=== PATIENT | female | born 1935 | race Caucasian/White ===

== ENCOUNTER 2024-03-16 18:18 | Inpatient (IN) | payer OTHER, SELFPAY ==
[2024-03-16 12:46] VITALS: BP 147/81
[2024-03-16 13:29] VITALS: BMI 23.8
[2024-03-16 13:38] VITALS: BP 135/72
[2024-03-16 14:00] VITALS: BP 118/89
[2024-03-16 15:01] LABS: % Basophils 0.8 % (0-2); % Eosinophils 3.1 % (0-6); % Immature Granulocytes 0.3 % (0-0.5); % Lymphocytes 20.2 % (20.5-51.1); % Monocytes 7.8 % (1.7-9.3); % Neutrophils 67.8 % (42.2-75.2); Absolute Basophils 0.1 10^3/uL (0-0.2); Absolute Eosinophils 0.2 10^3/uL (0-0.7); Absolute Lymphocytes 1.5 10^3/uL (1.2-3.4); Absolute Monocytes 0.6 10^3/uL (0.1-0.6); Absolute Neutrophils 5.1 10^3/uL (1.4-6.5); Hematocrit 39.5 % (37.0-47.0); Mean Corp Hgb Conc. 32.9 g/dL (33.0-37.0); Mean Corpuscular Hgb 29.6 pg (27.0-31.0); Mean Platelet Volume 9.8 fL (7.4-10.4); Nucleated Red Blood Cells % 0 %; Platelet Count 261 10^3/uL (130-400); Red Blood Cell Count 4.39 10^6/uL (4.20-5.40); Red Cell Dist. Width 14.4 % (11.5-14.5); White Blood Cell Count 7.5 10^3/uL (4.8-10.8)
[2024-03-16 15:20] LABS: ALT (SGPT) 41 U/L (0-35); AST (SGOT) 45 U/L (14-36); Alkaline Phosphatase 49 U/L (38-126); Blood Urea Nitrogen 18 mg/dl (7-17); Calcium 9.3 mg/dl (8.4-10.2); Carbon Dioxide 32 mmol/L (22-30); Chloride 95 mmol/L (98-107); Estimated Creatinine Clearance 48 ml/min; Glucose 124 mg/dl (70-99); Potassium 4.1 mmol/L (3.5-5.1); Sodium 133 mmol/L (135-145); Total Bilirubin 0.5 mg/dl (0.2-1.3); Total Protein 6.8 g/dl (6.3-8.2); eGFR > 60.00
[2024-03-16 15:25] LABS: NT-proBNP 5110 pg/ml; Troponin I < 0.012 ng/ml
--- NOTE | 2024-03-16 16:32 | ED.GENMED ---
History of Present Illness
General
Chief Complaint: Weakness
Source: patient
Exam Limitations: none
Time Seen by Provider: 03/16/24 14:14
Travel History
Have you had any contact with someone who has COVID-19?: No
Do you have any symptoms of coronavirus? Fever > 100 degrees, chills, cough, shortness of breath, sore throat, loss of taste or smell, muscle aches, or headache?: No
History of Present Illness
History of Present Illness:
88-year-old female presents in referral from cardiology office. She has a history of CHF. She is on Lasix daily. In the recent past she has been becoming more weak. The weakness was related to low blood pressure. It was recommended that last
night she stopped her blood pressure medicine and her Lasix. Her legs continue to swell today and she persisted with weakness in extremities referred here. She has no gasping for breath but she does note fatigue with exertion. She denies chest
pain. She denies a fever. No abdominal pain. No other complaints at this time
Past History
Past History
ED Past Medical History: Arrthythmia (Atrial fibrillation), HTN, Hypercholesterolemia, NIDDM, VT, Valvular disease (Aortic stenosis with TAVR) and Other (Arthritis)
ED Past Surgical History: Orthopedic
Social History
Tobacco: Non-smoker
Alcohol: None
Drug: None
Phy Exam
Physical Exam
Physical Exam:
General: Well-appearing female no acute respiratory distress HEENT: Normocephalic atraumatic
Heart: Regular rate and rhythm no murmurs
Lungs: Clear no wheeze or rales abdomen: Soft
Normal bowel sounds nondistended
Extremities: Pitting edema bilateral lower extremities no cyanosis
Vascular: 2+ dorsalis pedis pulse bilateral feet
Course
Orders/Labs/Results
Orders:
Orders
03/16/24 12:52
Electrocardiogram (*1) Urgent
Reason for Study: Shortness of Breath
03/16/24 12:53
EKG- Treatment ONCE
03/16/24 14:31
CR Chest - 2 Views Urgent
Comment:
Reason For Exam: weakness
03/16/24 14:44
Comprehensive Metabolic Panel Urgent
03/16/24 14:45
Complete Blood Count/With Diff Urgent
NT-proBNP Urgent
Troponin I Urgent
03/16/24 17:14
Furosemide [Lasix] 80 mg IV NOW STA
Abnormal Lab Results
03/16/24 03/16/24
14:44 14:45
MCHC 32.9 L g/dL
(33.0-37.0)
Lymphocytes % 20.2 L %
(20.5-51.1)
Sodium 133 L mmol/L
(135-145)
Chloride 95 L mmol/L
(98-107)
Carbon Dioxide 32 H mmol/L
(22-30)
BUN 18 H mg/dl
(7-17)
Glucose 124 H mg/dl
(70-99)
AST 45 H U/L
(14-36)
ALT 41 H U/L
(0-35)
03/16/24 14:45
03/16/24 14:44
Vital Signs
Initial and Last Documented VS:
Initial Vital Signs
Temp Pulse Resp BP Pulse Ox
98.1 F 78 18 147/81 97
03/16/24 12:46 03/16/24 12:46 03/16/24 12:46 03/16/24 12:46 03/16/24 12:46
Last Documented Vital Signs
Temp Pulse Resp BP Pulse Ox
98.1 F 70 22 118/89 97
03/16/24 12:46 03/16/24 17:00 03/16/24 17:00 03/16/24 14:00 03/16/24 17:00
MDM/Problems Addressed
Differential Diagnosis Includes:
Patient with weakness and fluid retention. Recent blood pressure readings have been low. It was recommended by cardiology to stop the Lasix and blood pressure medicine as of last night. This morning she was referred here. Patient does appear
volume overloaded but not hypoxic. BNP is 5110. Chest x-ray shows no acute pulmonary abnormality. Most recent blood pressure 118/89.
I suspect patient may be have a component of intravascular volume depletion secondary to the weakness and low blood pressure however does appear to be third spacing fluid.
*Critical Care Note
Total Time (30-74mins, 75-104mins- exclusive of procedures): Not Applicable
Update Note
Update Note:
BNP 5110. Chest x-ray clear. Patient difficult situation to manage acutely as she may be volume overloaded but intravascularly volume depleted. Lasix was ordered IV discussed with cardiology and will admit to hospitalist service.
ED Attending Note
-
Portions of this chart may have been created with voice recognition software.� Occasional wrong word or��sound alike� substitutions may have occurred due to the inherent limitations of voice recognition software.
Discharge Plan
Departure
Patient Disposition: Admit
Date of Disposition: 03/16/24
Time of Disposition: 17:15
Admit to: Telemetry
Presentation/result/management discussed w/ accepting MD/DO: Hospitalist
Discharge Problem:
CHF (congestive heart failure)
Prescriptions:
No Action
alendronate 70 MG tablet
70 mg PO SA
atorvastatin 10 MG tablet
10 mg PO DAILY
furosemide 20 MG tablet
60 mg PO DAILY
carvedilol 12.5 MG tablet
25 mg PO BID
spironolactone 25 MG tablet
12.5 mg PO DAILY
tamoxifen 20 MG tablet
20 mg PO DAILY
sacubitril-valsartan [Entresto] 1 EACH tablet
1 tab PO Q12H
metformin 500 MG tablet
500 mg PO TID Qty: 0 0RF
Rx Instructions:
HOLD post op- OK to resume on 12/06 in AM
cyanocobalamin (vitamin B-12) 1,000 MCG tablet
1,000 mcg PO DAILY
ascorbic acid (vitamin C) [Vitamin C] 500 MG tablet
500 mg PO DAILY
ferrous sulfate [FeroSul] 325 MG tablet
325 mg PO DAILY
furosemide 20 MG tablet
40 mg PO QPM
calcium carbonate-vitamin D3 [Oyster Shell Calcium-Vit D3] 500 MG tablet
1 tab PO DAILY
multivitamin with folic acid [Tab-A-Óscar] 1 TABLET tablet
1 tab PO DAILY
apixaban [Eliquis] 5 MG tablet
5 mg PO BID
Amiodarone Hcl 200 MG Tablet
200 mg PO BID Qty: 60 0RF
Rx Instructions:
Take amiodarone 200 mg twice a day for 1 month (until 05/10/22) then reduce to once daily thereafter
Amiodarone Hcl 200 MG Tablet
200 mg PO DAILY Qty: 30 11RF
Rx Instructions:
Take amiodarone 200 mg twice a day for 1 month (until 05/10/22) then reduce to once daily thereafter
tramadol 50 MG tablet
25 mg PO Q6HPRN PRN (Reason: back pain ) 4 Days Qty: 20 0RF
clopidogrel 75 MG tablet
75 mg PO DAILY 30 Days Qty: 30 0RF
apixaban [Eliquis] 5 MG tablet
5 mg PO BID 0RF
aspirin 81 MG tablet,delayed release (DR/EC)
81 mg PO DAILY Qty: 0 0RF
Patient Comments:
04/06/22-ems gave four chew aspirins before coming to [facility]
Rx Instructions:
Stop aspirin therapy April 14
Referrals:
Mg Izquierdo MD [Family Provider] -
Interventions
Interventions:
*Risk Screen - Suicide Last Done: 03/16/24 12:52
*General Assessment Last Done: 03/16/24 12:46
*Neglect/Abuse Screening Last Done: 03/16/24 12:46
ED- Fall Risk Assessment Last Done: 03/16/24 13:29
*ED COVID-19 Vaccine History Last Done: 03/16/24 13:29
ED- Cardiac Assessment Last Done: 03/16/24 13:29
ED- Neurological Assessment Last Done: 03/16/24 13:29
ED- Pulmonary Assessment Last Done: 03/16/24 13:29
Discharge Date and Time
Print Language: SLOVENIAN
--- NOTE | 2024-03-16 17:19 | HPS.HSE ---
Family Physician
-
Family Physician: Mg Izquierdo
Chief Complaint
-
Low blood pressure
History of Present Illness
88-year-old female extensive past medical cardiac history is presenting from home with hypotension. By 2 daughters at bedside one of them RN who stated patient blood pressure was in the systolic 70s to 90s at times. Patient also with blurry vision
during hypotensive. Patient did not have symptoms of lightheadedness or dizziness. Does become short of breath with exertion. Denies chest pain. States of chronic lower extremity edema which improved with diuresis. States call cardiology
recommended to stop taking her blood pressure medication including Lasix overnight into this morning. Patient was recently started on antibiotics for cold symptoms per daughter at bedside. No fevers or chills. States improvement in cough. Denies
any nausea, vomiting, abdominal pain, diarrhea, dizziness or any other focal symptoms. Currently resting comfortably in bed and receiving 40 mg of IV Lasix.
Medical History
Past Medical History
Past Medical History: Reports Other
Additional Past Medical History:
Chronic HFrEF and HFpEF
Paroxysmal atrial fibrillation
Chronic coagulopathy with Eliquis
Aortic stenosis status post TAVR
Severe mitral regurgitation
Hyperlipidemia
Iron deficiency anemia
Diabetes mellitus type 2
Breast cancer
CAD status post stent
History of bladder cancer
Past Surgical History: Reports Other
Additional Past Surgical History:
CAD status post CABG
Pacemaker
TAVR
Left shoulder surgery
Lumpectomy
Social History
Tobacco: Non-smoker
Family History
Family History: Not pertinent
Allergies / Home Medications
Allergies reflects when Allergies were last updated in [address].
Home Medications with original date entered in [address]
Allergy/Medication List:
Allergies
Allergy/AdvReac Type Severity Reaction Status Date / Time
amlodipine Allergy ankle Verified 11/01/22 22:03
swelling
Home Medications
alendronate 70 mg tablet 70 mg PO SA 01/16/18
atorvastatin 10 mg tablet 10 mg PO DAILY 01/16/18
metformin 500 mg tablet 500 mg PO TID ##0 12/05/19
ascorbic acid (vitamin C) 500 mg tablet (Vitamin C) 500 mg PO DAILY 04/06/22
calcium carbonate 500 mg-vitamin D3 5 mcg (200 unit) tablet (Oyster Shell Calcium-Vitamin D3) 1 tab PO DAILY 04/06/22
cyanocobalamin (vitamin B-12) 1,000 mcg tablet 1,000 mcg PO DAILY 04/06/22
multivitamin with folic acid 400 mcg tablet (Tab-A-Óscar) 1 tab PO DAILY 04/06/22
amiodarone 200 mg tablet 200 mg PO DAILY 03/16/24
amoxicillin 875 mg-potassium clavulanate 125 mg tablet 1 tab PO Q12H 03/16/24
apixaban 2.5 mg tablet 2.5 mg PO BID 03/16/24
carvedilol 6.25 mg tablet 6.25 mg PO BID 03/16/24
empagliflozin 10 mg tablet (Jardiance) 10 mg PO DAILY 03/16/24
furosemide 40 mg tablet 80 mg PO DAILY@202903/16/24
furosemide 40 mg tablet 80 mg PO SUTUTHSA@49903/16/24
furosemide 40 mg tablet 120 mg PO MOWEFR@05003/16/24
guaifenesin 600 mg tablet, extended release 12 hr (Mucinex) 600 mg PO Q12H PRN congestion 03/16/24
sacubitril 24 mg-valsartan 26 mg tablet (Entresto) 1 tab PO BID 03/16/24
Review of Systems
-
History Source: Patient and Family
A 12 point ROS was completed and negative except as noted: Yes
Physical Exam
Vital Signs
Vital Signs
Temp Pulse Resp BP Pulse Ox
98.1 F 70 22 118/89 97
03/16/24 12:46 03/16/24 17:00 03/16/24 17:00 03/16/24 14:00 03/16/24 17:00
Physical Exam
General: Well Developed, Well Nourished and No Apparent Distress
HEENT: NormoCephalic, Moist mucous membranes and Atraumatic
Respiratory: Clear
Cardiac: S1/S2, Regular Rhythm and Murmur; No Rub
GI: Soft, Non Tender, Non Distended and Normal Bowel Sounds; No Organomegaly
Rectal: Deferred by Provider
Musculoskeletal: No Clubbing, No Cyanosis, Edema, Left Lower Extremity and Edema, Right Lower Extremity
Skin: No Rash
Neuro: Awake, No Motor Deficits and Nonfocal/grossly intact
Psych: Calm
Laboratory Results
-
03/16/24 14:45
03/16/24 14:44
Laboratory Results
Total Bilirubin 0.5 mg/dl (0.2-1.3) 03/16/24 14:44
AST 45 U/L (14-36) H 03/16/24 14:44
ALT 41 U/L (0-35) H 03/16/24 14:44
Alkaline Phosphatase 49 U/L (38-126) 03/16/24 14:44
Troponin I < 0.012 ng/ml 03/16/24 14:45
Impression/Plan
-
#Mild acute on chronic HFpEF and HFrEF status post BiV ICD
#Severe valvular disease with MR
#Aortic stenosis status post TAVR
proBNP elevated
Status post 80 mg of IV Lasix and will monitor response
Plan to do 80 of IV Lasix daily for now
Patient on extensive heavy dose of Lasix at home and may need to be adjusted further on discharge
Cardiology has been consulted
Await med rec and may need to hold Entresto
Monitor blood pressure
Strict I's and O's. Daily weights
Echocardiogram per cards
Cardiology consultation-contacted by ER.
#Hypotension likely secondary to overmedication
Once med rec confirmed may need to adjust further cardiac/blood pressure meds
#Recent URI
On augmentin
#Paroxysmal atrial fibrillation
Chronic coagulopathy with Eliquis
Monitor on telemetry
Continue home regimen amiodarone and Eliquis and Coreg
#Diabetes mellitus type 2
Hold p.o. meds
Accu-Chek and update A1c
Hyperlipidemia
Continue statin
Breast cancer
Continue tamoxifen
DVT prophylaxis�Eliquis
Full code per patient and confirmed with 2 daughters
Discussed with 2 daughters at bedside in detail.
I spent a total of 79 minutes with the patient or on the floor. More than 50% of this time involved counseling and coordination of care.
[2024-03-16] MEDS: LASIX 80 MG IV (17:26)
[2024-03-16 17:29] VITALS: BP 143/81
[2024-03-16 19:45] VITALS: BP 130/71
--- NOTE | 2024-03-16 19:45 | PTCARENOTE ---
Pt arrived to unit from ED and ambulated with x1 standby assist from stretcher to bed. Pt AAOx3, no pain or any other complaints at this time. VS on admission stable, daughters updated on plan of care at bedside. Pt oriented to room, call silva
within reach. Evening meds reviewed and provided to pt.
[2024-03-16 19:57] VITALS: BMI 23.8
[2024-03-16 20:10] VITALS: BMI 23.5
[2024-03-16] MEDS: COREG 6.25 MG PO (20:22)
[2024-03-16] MEDS: ELIQUIS 2.5 MG PO (20:22)
[2024-03-16] MEDS: AUGMENTIN 875 MG/125 MG 1 TABLET PO (20:23)
[2024-03-16 21:52] LABS: Glucose - Point of Care 240 mg/dl (70-99)
[2024-03-16 23:34] VITALS: BP 113/70
[2024-03-17 03:46] VITALS: BP 107/63
[2024-03-17 06:58] VITALS: BMI 23.3
[2024-03-17 07:30] LABS: Glucose - Point of Care 116 mg/dl (70-99)
[2024-03-17 08:08] VITALS: BP 106/54
[2024-03-17] MEDS: NOVOLOG FLEXPEN-LOW RESISTANCE SC ×2 (08:09→17:21)
[2024-03-17] MEDS: ELIQUIS 2.5 MG PO ×2 (08:10→21:39)
[2024-03-17] MEDS: LIPITOR 10 MG PO (08:10)
[2024-03-17] MEDS: AUGMENTIN 875 MG/125 MG 1 TABLET PO ×2 (08:10→21:39)
[2024-03-17] MEDS: VITAMIN C 500 MG PO (08:10)
[2024-03-17] MEDS: VITAMIN B-12 1000 MCG PO (08:11)
[2024-03-17] MEDS: COREG 6.25 MG PO ×2 (08:11→21:46)
[2024-03-17] MEDS: JARDIANCE 10 MG PO (08:11)
[2024-03-17] MEDS: OSCAL 500 + D 500 MG PO (08:11)
[2024-03-17] MEDS: PACERONE 200 MG PO (08:11)
[2024-03-17] MEDS: THERAGRAN 1 TABLET PO (08:11)
[2024-03-17] MEDS: LASIX 80 MG IV (08:12)
[2024-03-17] MEDS: MUCINEX 600 MG PO (08:32)
[2024-03-17 08:45] LABS: Blood Urea Nitrogen 16 mg/dl (7-17); Calcium 8.8 mg/dl (8.4-10.2); Carbon Dioxide 29 mmol/L (22-30); Chloride 99 mmol/L (98-107); Estimated Creatinine Clearance 46 ml/min; Glucose 117 mg/dl (70-99); Magnesium 2.2 mg/dl (1.6-2.3); Potassium 3.7 mmol/L (3.5-5.1); Sodium 135 mmol/L (135-145); eGFR > 60.00
[2024-03-17 10:48] LABS: Glycohemoglobin (HgbA1c) 7.2 % (4.0-5.6)
--- NOTE | 2024-03-17 10:56 | CON.CAR ---
Addendum entered and electronically signed by Miguel Angel Martinez DO 03/17/24 12:52:
I saw and examined the patient.
The Manager Stone's note was reviewed and I agree with the note.
Comment:
Patient resting comfortably in chair. Patient reporting improvement in breathing, lower extremity swelling, abdominal distention. She still reports mild lower extremity swelling and abdominal distention but much improved. Patient denies any chest
pain, lightheadedness, dizziness, near-syncope, syncope, PND, orthopnea, vision changes.
General: Well Developed, Well Nourished and No Apparent Distress
HEENT: Normocephalic, Anicteric and Moist Mucous Membranes
Respiratory: Clear and Non Labored Respirations
Cardiac: S1/S2, Regular Rhythm and Murmur; L CIED site well healed
Musculoskeletal: No Clubbing, No Cyanosis; 1+ BL LE edema
Abd: Soft non-tender, mild distension
Skin: Warm and Dry
Neuro: AO x 3 and Nonfocal/Grossly Intact
Psych: Calm
A/P as below
IV diuresis 24-48 hours
Monitor I/Os, weights, renal function, electrolytes
Slow re-introduction of GDMT; if BP stable will resume entresto in AM
Will follow
Original Note:
Consultation
Consultation Request
Date/Time Consultation Requested: 03/17/2024
Date/Time Consultation Performed: 03/17/2024
Requesting Provider: Dr. Tyler
Performing Provider: Dr. Martinez
Reason for Consultation: CHF
Medical History
-
History of Present Illness:
HPI: Stephanie is an 88 year old female with PMH of chronic HFmrEF, CM, persistent atrial fibrillation, CAD s/p CABGx3 and PTCA of ostial and mid SVG to PDA, VT, ICD, TAVR, mitral regurgitation, DM, and HLD. She presented to [facility] for evaluation of
hypotension and SOB. She initially called the cardiology office on 03/15/2024 to report that she had been feeling weak and tired. With this, she started checking her blood pressures and her blood pressure had been low, in the 80s to 90s systolic. She
was recommended to hold her Lasix, Entresto, and Coreg and call back with an update. She then called back 03/16/2024 and was still feeling short of breath. Blood pressures were improved, but given ongoing shortness of breath, she was recommended to
go to the ER for further evaluation. On arrival to the emergency room, she was felt to be in acute heart failure and was started on IV Lasix. proBNP was elevated at 5110. She also noted increased lower extremity edema. She was admitted and
cardiology consulted for evaluation. She states she is feeling better this morning, however not yet back to her baseline. Her blood pressures are improved. She denies any shortness of breath while sitting up in her chair.
PMH:
Chronic HFmrEF
Cardiomyopathy, EF 42%
Persistent atrial fibrillation
Chronic Eliquis anticoagulation
CAD
s/p CABG x3 05/26/2004
Patient SZYMANSKI to LAD and SVG to OM-1, successful complex, long and difficult PTCA of the ostial and mid SVG to PDA 04/07/22
h/o polymorphic VT 03/2022
s/p Medtronic Bi-V pacemaker upgraded to ICD with new RV ICD lead 04/09/22
s/p TAVR 09/2015
Moderate-severe MR
DM 2
HLD
Past Medical History
Past Medical History: Other (In HPI)
Past Surgical History: Cardiac (Permanent pacemaker with upgrade to ICD, CABG x 3, PTCA of SVG to PDA.) and Other (Cataract extraction, TURBT, partial left hip replacement, right breast lumpectomy)
Social History
Tobacco: Non-Smoker
Alcohol: None
Drug: None
Personal:
Living: Alone
Employment: Retired
Family History
Family History: Cancer
Allergies / Home Medications
Allergy/AdvReac Type Severity Reaction Status Date / Time
amlodipine Allergy ankle Verified 11/01/22 22:03
swelling
�Medication �Instructions �Recorded �Confirmed �Type
alendronate 70 mg tablet 70 mg PO SA 01/16/18 03/16/24 History
atorvastatin 10 mg tablet 10 mg PO DAILY 01/16/18 03/16/24 History
metformin 500 mg tablet 500 mg PO TID ##0 12/05/19 03/16/24 Rx
ascorbic acid (vitamin C) 500 mg 500 mg PO DAILY 04/06/22 03/16/24 History
tablet (Vitamin C)
calcium carbonate 500 mg-vitamin 1 tab PO DAILY 04/06/22 03/16/24 History
D3 5 mcg (200 unit) tablet (Oyster
Shell Calcium-Vitamin D3)
cyanocobalamin (vitamin B-12) 1,000 mcg PO DAILY 04/06/22 03/16/24 History
1,000 mcg tablet
multivitamin with folic acid 400 1 tab PO DAILY 04/06/22 03/16/24 History
mcg tablet (Tab-A-Óscar)
amiodarone 200 mg tablet 200 mg PO DAILY 03/16/24 03/16/24 History
amoxicillin 875 mg-potassium 1 tab PO Q12H 03/16/24 03/16/24 History
clavulanate 125 mg tablet
apixaban 2.5 mg tablet 2.5 mg PO BID 03/16/24 03/16/24 History
carvedilol 6.25 mg tablet 6.25 mg PO BID 03/16/24 03/16/24 History
empagliflozin 10 mg tablet 10 mg PO DAILY 03/16/24 03/16/24 History
(Jardiance)
furosemide 40 mg tablet 80 mg PO DAILY@202903/16/24 03/16/24 History
furosemide 40 mg tablet 80 mg PO SUTUTHSA@49903/16/24 03/16/24 History
furosemide 40 mg tablet 120 mg PO MOWEFR@49903/16/24 03/16/24 History
guaifenesin 600 mg tablet, 600 mg PO Q12H PRN congestion 03/16/24 03/16/24 History
extended release 12 hr (Mucinex)
sacubitril 24 mg-valsartan 26 mg 1 tab PO BID 03/16/24 03/16/24 History
tablet (Entresto)
Review of Systems
-
History Source: Patient
All other systems: Negative unless noted
Physical Exam
Vital Signs
Temp Pulse Resp BP Pulse Ox
98.1 F 71 14 107/63 98
03/17/24 08:08 03/17/24 08:12 03/17/24 08:08 03/17/24 08:12 03/17/24 08:08
Lab Results
03/16/24 14:45
03/17/24 07:22
Troponin I < 0.012 ng/ml 03/16/24 14:45
Tvy-M-Zmpdajsmtga Pept 5110 pg/ml 03/16/24 14:45
Physical Exam
General: Well Developed, Well Nourished and No Apparent Distress
HEENT: Normocephalic, Anicteric and Moist Mucous Membranes
Respiratory: Clear and Non Labored Respirations
Cardiac: S1/S2, Regular Rhythm and Murmur
Musculoskeletal: No Clubbing, No Cyanosis and Edema
Skin: Warm and Dry
Neuro: AO x 3 and Nonfocal/Grossly Intact
Psych: Calm
Impression / Plan
-
PCP: Dr. Izquierdo
Outboard Motorboat Rigger: Dr. Ericka Norris
Impression:
Presented with SOB, hypotension
Acute on chronic HFmrEF
Cardiomyopathy, EF 42%
Persistent atrial fibrillation
Chronic Eliquis anticoagulation
CAD
s/p CABG x3 05/26/2004
Patient SZYMANSKI to LAD and SVG to OM-1, successful complex, long and difficult PTCA of the ostial and mid SVG to PDA 04/07/22
h/o polymorphic VT 03/2022
Chronic amiodarone therapy
s/p Medtronic Bi-V pacemaker upgraded to ICD with new RV ICD lead 04/09/22
s/p TAVR 09/2015
Moderate-severe MR
DM 2
HLD
Echo 09/28/2023: EF 42%, global hypokinesis with basal anteroseptal, basal inferior, and basal septal akinesis, moderate to severe MR, TAVR with peak/mean gradients 20/10 mmHg, trace AI, mild to moderate TR, estimated PAP 37 mmHg
Plan:
-Presented with shortness of breath. Has been having hypotension at home and multiple cardiac medications were on hold including her Lasix.
-In acute heart failure on arrival with proBNP 5110. Restarted on IV Lasix 80 mg daily. She has been diuresing well with this.
-Weight down at least 1 pound overnight, down to 119 pounds.
-Continue daily weights, IN&O's.
-Creat stable at 0.6. Continue to follow with diuresis.
-Known cardiomyopathy with EF most recently 42% 09/2023.
-Previously has been on medical therapy with Entresto, Jardiance, and Coreg. Coreg and Entresto were held as outpatient earlier this week.
-Blood pressures overall stable this admission. Coreg has been resumed at 6.25 mg twice daily. Continue Jardiance.
-Continue to follow blood pressures and may consider resuming Entresto as able.
-Troponin negative x 1. She has no chest pain. EKG V paced with underlying Afib
-Known atrial fibrillation. Heart rates stable on current dose of Coreg and amiodarone. Continue Eliquis 2.5 mg twice daily for anticoagulation (age, weight)
-Continue Augmentin as recently started by PCP for URI.
HPI: Stephanie is an 88 year old female with PMH of chronic HFmrEF, CM, persistent atrial fibrillation, CAD s/p CABGx3 and PTCA of ostial and mid SVG to PDA, VT, ICD, TAVR, mitral regurgitation, DM, and HLD. She presented to [facility] for evaluation of
hypotension and SOB. She initially called the cardiology office on 03/15/2024 to report that she had been feeling weak and tired. With this, she started checking her blood pressures and her blood pressure had been low, in the 80s to 90s systolic. She
was recommended to hold her Lasix, Entresto, and Coreg and call back with an update. She then called back 03/16/2024 and was still feeling short of breath. Blood pressures were improved, but given ongoing shortness of breath, she was recommended to
go to the ER for further evaluation. On arrival to the emergency room, she was felt to be in acute heart failure and was started on IV Lasix. proBNP was elevated at 5110. She also noted increased lower extremity edema. She was admitted and
cardiology consulted for evaluation. She states she is feeling better this morning, however not yet back to her baseline. Her blood pressures are improved. She denies any shortness of breath while sitting up in her chair.
Data Reviewed
-
EKG: Tracing Personally Visualized and interpreted
Radiology: Report Reviewed by me
Labs: Labs Reviewed by me
Old Records: Reviewed
[2024-03-17 11:22] VITALS: BP 119/73
--- NOTE | 2024-03-17 11:31 | CM ---
corporate traffic manager reviewed patient's chart and met with patient and her daughter Jessica at bedside who is a nurse, patient lives alone in a one story home with no steps to enter, patient is independent with adl's and uses a cane with ambulation. patient
has a prescription plan and uses [facility] pharmacy.
PCP: Dr. Izquierdo
Plan; Home when stable, no needs.
--- NOTE | 2024-03-17 11:49 | W.PN.HOSP.TC ---
Today's Communication/Plan
-
Continue with IV diuresis
Monitor blood pressure
Monitor creatinine
Cardiology recs
Assessment / Plan
Assessment / Plan
#Mild acute on chronic HFpEF and HFrEF status post BiV ICD
#Severe valvular disease with MR
#Aortic stenosis status post TAVR
proBNP elevated
Status post 80 mg of IV Lasix and will monitor response
Plan to do 80 of IV Lasix daily for now and further adjustment per cards. Seems to be losing weight and creatinine holding.
Patient on extensive heavy dose of Lasix at home and may need to be adjusted further on discharge
Cardiology has been consulted
If blood pressure persistently stable consider restarting Entresto
Monitor blood pressure
Strict I's and O's. Daily weights
Echocardiogram per cards
Cardiology consultation-contacted by ER.
#Hypotension likely secondary to overmedication
Monitor blood pressure on IV diuresis. Can restart Entresto if blood pressure can tolerate it.
Tolerating carvedilol so far.
#Recent URI
On augmentin
#Paroxysmal atrial fibrillation
Chronic coagulopathy with Eliquis
Monitor on telemetry
Continue home regimen amiodarone and Eliquis and Coreg
#Diabetes mellitus type 2
Hold p.o. meds
Accu-Chek and update A1c 7.2
Hyperlipidemia
Continue statin
Breast cancer
Continue tamoxifen
DVT prophylaxis�Eliquis
Full code per patient and confirmed with 2 daughters
Anticipated Discharge: > 48 hours
Subjective/Interval History
-
Date of Service: March 17, 2024
States continues to pass urine with IV Lasix
States of lower extremity edema
Objective Data
-
Labs:
Laboratory Results
03/17/24
07:22
Sodium 135
Potassium 3.7
Chloride 99
Carbon Dioxide 29
BUN 16
Creatinine 0.6
Glucose 117 H
Calcium 8.8
Vital Signs:
Vital Signs
Temp Pulse Resp BP Pulse Ox
97.3 F 70 16 119/73 97
03/17/24 11:22 03/17/24 11:22 03/17/24 11:22 03/17/24 11:22 03/17/24 11:22
I&O
03/16/24 03/17/24 03/18/24
06:59 06:59 06:59
Intake Total 960 / 960
Balance 960 / 960
Physical Exam
-
General: Well Developed and No Apparent Distress
HEENT: Normocephalic, Atraumatic and Moist Mucous Membranes
Respiratory: Clear to Auscultation
Cardiac: Regular Rhythm and S1/S2; Negative Murmur, Rub or Gallop
GI: Soft, Nontender, Nondistended and Normal Bowel Sounds; Negative Organomegaly
Rectal: Deferred by Provider
Musculoskeletal: No Clubbing, No Cyanosis, Edema, Right Lower Extrem and Edema, Left Lower Extrem
Skin: Negative Rash
Neuro: Awake and Nonfocal/Grossly Intact
Psych: Calm
[2024-03-17 12:14] LABS: Glucose - Point of Care 170 mg/dl (70-99)
[2024-03-17] MEDS: NOVOLOG FLEXPEN-LOW RESISTANCE 1 UNITS SC (12:48)
[2024-03-17 15:20] VITALS: BP 109/64
[2024-03-17 17:14] LABS: Glucose - Point of Care 118 mg/dl (70-99)
[2024-03-17 19:00] VITALS: BP 123/67
[2024-03-17 21:32] LABS: Glucose - Point of Care 148 mg/dl (70-99)
[2024-03-17 23:00] VITALS: BP 103/53
[2024-03-18 03:00] VITALS: BP 113/65
[2024-03-18 06:00] VITALS: BMI 23.3
[2024-03-18 07:55] LABS: Glucose - Point of Care 126 mg/dl (70-99)
[2024-03-18 08:00] VITALS: BP 120/69
[2024-03-18] MEDS: AUGMENTIN 875 MG/125 MG 1 TABLET PO ×2 (08:15→19:55)
[2024-03-18] MEDS: PACERONE 200 MG PO (08:15)
[2024-03-18] MEDS: COREG 6.25 MG PO ×2 (08:16→19:57)
[2024-03-18] MEDS: OSCAL 500 + D 500 MG PO (08:16)
[2024-03-18] MEDS: JARDIANCE 10 MG PO (08:16)
[2024-03-18] MEDS: THERAGRAN 1 TABLET PO (08:16)
[2024-03-18] MEDS: LIPITOR 10 MG PO (08:16)
[2024-03-18] MEDS: MUCINEX 600 MG PO (08:16)
[2024-03-18] MEDS: VITAMIN C 500 MG PO (08:16)
[2024-03-18] MEDS: VITAMIN B-12 1000 MCG PO (08:16)
[2024-03-18 08:19] LABS: Blood Urea Nitrogen 15 mg/dl (7-17); Calcium 8.9 mg/dl (8.4-10.2); Carbon Dioxide 33 mmol/L (22-30); Chloride 99 mmol/L (98-107); Estimated Creatinine Clearance 39 ml/min; Glucose 116 mg/dl (70-99); Magnesium 2.3 mg/dl (1.6-2.3); Potassium 3.7 mmol/L (3.5-5.1); Sodium 140 mmol/L (135-145); eGFR > 60.00
[2024-03-18] MEDS: LASIX 80 MG IV (08:19)
[2024-03-18] MEDS: NOVOLOG FLEXPEN-LOW RESISTANCE SC ×4 (08:20→17:24)
[2024-03-18] MEDS: ELIQUIS 2.5 MG PO ×2 (08:20→19:56)
[2024-03-18 11:14] VITALS: BP 129/71
--- NOTE | 2024-03-18 11:24 | W.PN.HOSP.TC ---
Today's Communication/Plan
-
IV Lasix
Trend creatinine
Restart Entresto in 24 hours depending on blood pressure
Assessment / Plan
Assessment / Plan
#Mild acute on chronic HFpEF and HFrEF status post BiV ICD
#Severe valvular disease with MR
#Aortic stenosis status post TAVR
proBNP elevated
Status post 80 mg of IV Lasix and will monitor response
Plan to do 80 of IV Lasix daily for now and further adjustment per cards. Seems to be losing weight and creatinine holding.
Patient on extensive heavy dose of Lasix at home and may need to be adjusted further on discharge
Creatinine holding at 0.7 today.
If blood pressure persistently stable consider restarting Entresto
Monitor blood pressure
Strict I's and O's. Daily weights
Echocardiogram per cards
Cardiology consultation-contacted by ER.
#Hypotension likely secondary to overmedication
Monitor blood pressure on IV diuresis. Can restart Entresto if blood pressure can tolerate it.
Tolerating carvedilol so far.
#Recent URI
On augmentin
#Paroxysmal atrial fibrillation
Chronic coagulopathy with Eliquis
Monitor on telemetry
Continue home regimen amiodarone and Eliquis and Coreg
#Diabetes mellitus type 2
Hold p.o. meds
Accu-Chek and update A1c 7.2
Hyperlipidemia
Continue statin
Breast cancer
Continue tamoxifen
DVT prophylaxis�Eliquis
Full code per patient and confirmed with 2 daughters
Anticipated Discharge: > 48 hours
Subjective/Interval History
-
Date of Service: March 18, 2024
States she is passing increasing amount of urine
Objective Data
-
Labs:
Laboratory Results
03/18/24
06:44
Sodium 140
Potassium 3.7
Chloride 99
Carbon Dioxide 33 H
BUN 15
Creatinine 0.7
Glucose 116 H
Calcium 8.9
Vital Signs:
Vital Signs
Temp Pulse Resp BP Pulse Ox
97.7 F 77 16 120/69 97
03/18/24 07:28 03/18/24 08:19 03/18/24 03:00 03/18/24 08:19 03/18/24 08:00
I&O
03/17/24 03/18/24 03/19/24
06:59 06:59 06:59
Intake Total 960 / 960 1320 / 1320
Balance 960 / 960 1320 / 1320
Physical Exam
-
General: Well Developed and No Apparent Distress
HEENT: Normocephalic, Atraumatic and Moist Mucous Membranes
Respiratory: Clear to Auscultation
Cardiac: Regular Rhythm and S1/S2; Negative Murmur, Rub or Gallop
GI: Soft, Nontender, Nondistended and Normal Bowel Sounds; Negative Organomegaly
Rectal: Deferred by Provider
Musculoskeletal: No Clubbing, No Cyanosis, Edema, Right Lower Extrem (c) and Edema, Left Lower Extrem (improving )
Skin: Negative Rash
Neuro: Awake, No Motor Deficits and Nonfocal/Grossly Intact
Psych: Calm
[2024-03-18 12:00] LABS: Glucose - Point of Care 165 mg/dl (70-99)
[2024-03-18] MEDS: ENTRESTO 24 MG/26 MG 1 TAB PO ×2 (12:24→19:57)
[2024-03-18 15:22] VITALS: BP 129/68
[2024-03-18 17:21] LABS: Glucose - Point of Care 137 mg/dl (70-99)
--- NOTE | 2024-03-18 19:33 | W.PN.CARDCBS ---
Today's Communication / Plan
-
Continue IV diuresis
Addition of Entresto today, monitor blood pressure response
Monitor strict weight, intake and output, renal function
Impression / Plan
-
PCP: Dr. Izquierdo
Antique Clocks Repairer: Dr. Ericka Norris
Impression:
Presented with SOB, hypotension
Acute on chronic HFmrEF
Cardiomyopathy, EF 42%
Persistent atrial fibrillation
Chronic Eliquis anticoagulation
CAD
s/p CABG x3 05/26/2004
Patient SZYMANSKI to LAD and SVG to OM-1, successful complex, long and difficult PTCA of the ostial and mid SVG to PDA 04/07/22
h/o polymorphic VT 03/2022
Chronic amiodarone therapy
s/p Medtronic Bi-V pacemaker upgraded to ICD with new RV ICD lead 04/09/22
s/p TAVR 09/2015
Moderate-severe MR
DM 2
HLD
Echo 09/28/2023: EF 42%, global hypokinesis with basal anteroseptal, basal inferior, and basal septal akinesis, moderate to severe MR, TAVR with peak/mean gradients 20/10 mmHg, trace AI, mild to moderate TR, estimated PAP 37 mmHg
Plan:
-Presented with shortness of breath. Has been having hypotension at home and multiple cardiac medications were on hold including her Lasix.
-In acute heart failure on arrival with proBNP 5110. Restarted on IV Lasix 80 mg daily. She has been diuresing well with this.
-Continue daily weights, IN&O's.
-Creat stable at 0.6. Continue to follow with diuresis.
-Known cardiomyopathy with EF most recently 42% 09/2023.
-Previously has been on medical therapy with Entresto, Jardiance, and Coreg. Coreg and Entresto were held as outpatient earlier this week.
-Blood pressures overall stable this admission. Coreg has been resumed at 6.25 mg twice daily. Continue Jardiance. Entresto resumed 03/18, tolerating well BP stable
-Continue to follow blood pressures and may consider resuming Entresto as able.
-Troponin negative x 1. She has no chest pain. EKG V paced with underlying Afib
-Known atrial fibrillation. Heart rates stable on current dose of Coreg and amiodarone. Continue Eliquis 2.5 mg twice daily for anticoagulation (age, weight)
-Continue Augmentin as recently started by PCP for URI.
HPI: Stephanie is an 88 year old female with PMH of chronic HFmrEF, CM, persistent atrial fibrillation, CAD s/p CABGx3 and PTCA of ostial and mid SVG to PDA, VT, ICD, TAVR, mitral regurgitation, DM, and HLD. She presented to [facility] for evaluation of
hypotension and SOB. She initially called the cardiology office on 03/15/2024 to report that she had been feeling weak and tired. With this, she started checking her blood pressures and her blood pressure had been low, in the 80s to 90s systolic. She
was recommended to hold her Lasix, Entresto, and Coreg and call back with an update. She then called back 03/16/2024 and was still feeling short of breath. Blood pressures were improved, but given ongoing shortness of breath, she was recommended to
go to the ER for further evaluation. On arrival to the emergency room, she was felt to be in acute heart failure and was started on IV Lasix. proBNP was elevated at 5110. She also noted increased lower extremity edema. She was admitted and
cardiology consulted for evaluation. She states she is feeling better this morning, however not yet back to her baseline. Her blood pressures are improved. She denies any shortness of breath while sitting up in her chair.
Progress Note - Antique Clocks Repairer
Subjective
Date of Service: March 18, 2024
Patient seen and examined. No acute events overnight. Patient resting complaint bed. Patient denies any chest pain, shortness of breath, lightheadedness, dizziness, near-syncope, syncope, vision changes, or weakness. Patient V paced on
telemetry.
Objective
Labs:
03/16/24 14:45
03/18/24 06:44
Labs
Hgb 13.0 g/dL (12.0-16.0) 03/16/24 14:45
Hct 39.5 % (37.0-47.0) 03/16/24 14:45
Plt Count 261 10^3/uL (130-400) 03/16/24 14:45
Sodium 140 mmol/L (135-145) 03/18/24 06:44
Potassium 3.7 mmol/L (3.5-5.1) 03/18/24 06:44
BUN 15 mg/dl (7-17) 03/18/24 06:44
Creatinine 0.7 mg/dL (0.6-1.0) 03/18/24 06:44
Glucose 116 mg/dl (70-99) H 03/18/24 06:44
Troponins
03/16/24
14:45
Troponin I < 0.012
Vital Signs and I&O:
Vital Signs
Temp Pulse Resp BP Pulse Ox
97.5 F 71 18 129/68 99
03/18/24 15:22 03/18/24 15:22 03/18/24 15:22 03/18/24 15:22 03/18/24 15:22
Vital Signs
Temp Pulse Resp BP Pulse Ox
97.5 F 71 18 129/68 99
03/18/24 15:22 03/18/24 15:22 03/18/24 15:22 03/18/24 15:22 03/18/24 15:22
Intake & Output
03/16/24 03/17/24 03/18/24 03/19/24
06:59 06:59 06:59 06:59
Intake Total 960 / 960 1320 / 1320
Balance 960 / 960 1320 / 1320
Physical Exam
Physical Exam
GENERAL: no acute distress
EYE: sclera anicteric
NECK: Supple, no JVD, no carotid bruit appreciated
ENT: normal nose, moist mucosal membranes
CARDIAC: Regular rate and rhythm, +S1/S2, no murmur, rubs, or gallops; left CIED site well-healed
CHEST/PULMONARY: Normal effort, clear breath sounds
ABDOMEN: Soft, without focal tenderness or distention
NEUROLOGICAL: Alert and oriented x3
SKIN: Warm and dry, no rash, trace edema bilateral lower extremities
PSYCH: Normal and appropriate interaction.
[2024-03-18 19:59] VITALS: BP 107/58
[2024-03-18 21:30] LABS: Glucose - Point of Care 219 mg/dl (70-99)
[2024-03-18 23:00] VITALS: BP 125/70
[2024-03-19] VITALS (7 sets, daily range): BP systolic 118–137; BP diastolic 63–80; PULSE 73; O2SAT 99; BMI 23.3
[2024-03-19 07:00] LABS: Glucose - Point of Care 140 mg/dl (70-99)
[2024-03-19] MEDS: NOVOLOG FLEXPEN-LOW RESISTANCE SC ×3 (08:01→17:34)
[2024-03-19] MEDS: LIPITOR 10 MG PO (08:48)
[2024-03-19] MEDS: OSCAL 500 + D 500 MG PO (08:49)
[2024-03-19] MEDS: THERAGRAN 1 TABLET PO (08:49)
[2024-03-19] MEDS: ELIQUIS 2.5 MG PO ×2 (08:49→19:49)
[2024-03-19] MEDS: VITAMIN C 500 MG PO (08:49)
[2024-03-19] MEDS: VITAMIN B-12 1000 MCG PO (08:49)
[2024-03-19] MEDS: AUGMENTIN 875 MG/125 MG 1 TABLET PO ×2 (08:49→19:50)
[2024-03-19] MEDS: COREG 6.25 MG PO ×2 (08:49→19:50)
[2024-03-19] MEDS: ENTRESTO 24 MG/26 MG 1 TAB PO ×2 (08:49→19:50)
[2024-03-19] MEDS: PACERONE 200 MG PO (08:49)
[2024-03-19] MEDS: LASIX 80 MG IV (08:50)
[2024-03-19] MEDS: JARDIANCE 10 MG PO (08:52)
[2024-03-19 09:06] LABS: Blood Urea Nitrogen 16 mg/dl (7-17); Carbon Dioxide 33 mmol/L (22-30); Chloride 99 mmol/L (98-107); Estimated Creatinine Clearance 39 ml/min; Glucose 216 mg/dl (70-99); Potassium 3.9 mmol/L (3.5-5.1); Sodium 139 mmol/L (135-145); eGFR > 60.00
--- NOTE | 2024-03-19 09:11 | W.PN.HOSP.TC ---
Addendum entered and electronically signed by Josh Mcmillan DO 03/19/24 14:20:
Correction: Persistent atrial fibrillation, acute on chronic heart failure midrange EF
Original Note:
Today's Communication/Plan
-
PT/OT
Assessment / Plan
Assessment / Plan
Gen-AAOx3, NAD
HEENT-NC, AT, anicteric, clear oral mm
Neck-supple
CV-reg, no M, +S1/S2
Lungs-clear B/L
Abd-soft, NT, ND
Ext-trace bilateral ankle edema
Musculoskeletal-no cyanosis, clubbing
Skin-warm and dry
Neuro-grossly non-focal
Psych-calm, cooperative
Mild acute on chronic HFpEF and HFrEF
BiV ICD
Severe valvular disease with MR
Aortic stenosis status post TAVR
proBNP elevated
Status post 80 mg of IV Lasix and will monitor response
Plan to do 80 of IV Lasix daily for now and further adjustment per cards. Seems to be losing weight and creatinine holding.
Patient on extensive heavy dose of Lasix at home and may need to be adjusted further on discharge
Creatinine holding at 0.7 today.
If blood pressure persistently stable consider restarting Entresto
Last echocardiogram was September 2023, EF 42%, global hypokinesis, moderate to severe MR.
Hypotension likely secondary to overmedication
Monitor blood pressure on IV diuresis. Can restart Entresto if blood pressure can tolerate it.
Tolerating carvedilol so far.
Hyponatremia -present on admission. Resolved.
Recent URI
On augmentin
Paroxysmal atrial fibrillation
Chronic coagulopathy with Eliquis
Monitor on telemetry
Continue home regimen amiodarone and Eliquis and Coreg
Diabetes mellitus type 2 with hyperglycemia -glucose 216 this morning on BMP, 219 last night. She is on Jardiance and metformin at home. Hemoglobin A1c 7.2%. Currently on Jardiance and low resistance NovoLog scale.
Hyperlipidemia
Continue statin
Breast cancer
Continue tamoxifen
Full code
PT/OT
Anticipated Discharge: Within 24 hours
Subjective/Interval History
-
Date of Service: March 19, 2024
Patient seen and examined. No complaints.
Objective Data
-
Labs:
Laboratory Results
03/19/24
08:25
Sodium 139
Potassium 3.9
Chloride 99
Carbon Dioxide 33 H
BUN 16
Creatinine 0.7
Glucose 216 H
Calcium 9.0
Vital Signs:
Vital Signs
Temp Pulse Resp BP Pulse Ox
97.7 F 73 16 134/69 98
03/19/24 03:00 03/19/24 03:00 03/19/24 03:00 03/19/24 03:00 03/19/24 03:00
I&O
03/18/24 03/19/24 03/20/24
06:59 06:59 06:59
Intake Total 1320 / 1320 480 / 480
Output Total 300 / 300
Balance 1320 / 1320 480 / 480 -300 / -300
Review of Systems
-
History Source: Patient
All other systems: Reviewed and negative
--- NOTE | 2024-03-19 10:38 | W.PN.CARDCBS ---
Addendum entered and electronically signed by Ericka Norris MD 03/19/24 12:59:
Of note she tells me she did see ophthalmology and they said everything was normal with exam. The most likely etiology given it was both eyes with 'reid ' Is low blood pressure. Continue to follow.
Addendum entered and electronically signed by Ericka Norris MD 03/19/24 12:58:
I saw and examined the patient.
The Coffin Maker's note was reviewed and I agree with the note.
Comment: She is stable from a cardiac point of view. Exam is stable and edema is better than baseline with mild edema noted. Unclear what prompted her to have low blood pressure and brief de-escalation of outpatient medications. She is now
diuresed closer to what is likely a dry weight. We will be cautious given history of orthostatic hypotension.
Not sure what to make of vision related changes with her vision being reid such that she cannot see for quite some period of time Tuesday into of last week. This was not a prominent complaint when she came to the ER and will defer to
primary service.
-Change outpatient diuretic to 120 mg in the morning and 80 mg in the p.m. I advised the patient and her daughter not to be taking her p.m. dose of diuretic at 730 or 8 PM at night given risk of nocturnal orthostatic hypotension. She will try to
take around 1 or 2 in the afternoon.
-Device check interrogated with no significant new arrhythmia.
-Mitral regurgitation murmur remains prominent will recheck echocardiogram and further address as an outpatient. When volume overloaded previously mitral valve with moderate to severe regurgitation
-Continue guideline directed medical therapy.
Original Note:
Today's Communication / Plan
-
BP tolerating restart of usual home meds
Weight is down to 119 lbs which is her dry weight. Diuresed with Lasix 80 mg IV daily thus far
Was taking Lasix 120 mg AM and 80 mg PM MWF and then 80 mg BID all other days
Impression / Plan
-
PCP: Dr. Izquierdo
Senior Programmer: Dr. Ericka Norris
Impression:
Presented with SOB, hypotension
Acute on chronic HFmrEF
Cardiomyopathy, EF 42%
Persistent atrial fibrillation
Chronic Eliquis anticoagulation
CAD
s/p CABG x3 05/26/2004
Patient SZYMANSKI to LAD and SVG to OM-1, successful complex, long and difficult PTCA of the ostial and mid SVG to PDA 04/07/22
h/o polymorphic VT 03/2022
Chronic amiodarone therapy
s/p Medtronic Bi-V pacemaker upgraded to ICD with new RV ICD lead 04/09/22
s/p TAVR 09/2015
Moderate-severe MR
DM 2
HLD
Echo 09/28/2023: EF 42%, global hypokinesis with basal anteroseptal, basal inferior, and basal septal akinesis, moderate to severe MR, TAVR with peak/mean gradients 20/10 mmHg, trace AI, mild to moderate TR, estimated PAP 37 mmHg
Plan:
-Patient is symptomatically improved with Lasix 80 mg IV daily since admission. Patient weighed 123 lbs at home on day of admission and is down to 119 lbs on 03/19/24. Patient and daughter think dry weight at home should be between 120-122 lbs.
Outpatient dose of Lasix 120 mg MWF and 80 mg all other days plus 80 mg every evening was held just prior to admission due to dizziness.
-EF 42% by echo 09/2023. CM regimen included Coreg 6.25 mg BID, Jardiance 10 mg daily and Entresto 24/26 mg BID prior to admission. When patient called the office 03/15/24 to report fatigue her Lasix, Entresto and Coreg were all held.
-Coreg 6.25 mg BID restarted 03/16/24 and all doses given with stable BP.
-Entresto 24/26 mg BID restarted 03/18/24 AM and thus far all doses given with stable BP
-Lasix as noted above was restarted on admission at 80 mg IV daily resulting in diuresis and improved SOB, but no hypotension.
-Device checked by me 03/19/24 and no atrial or ventricular arrhythmia since 01/11/24
-Creat stable at 0.6. Continue to follow with diuresis.
-Troponin undetectable x 1.
-Known atrial fibrillation. Heart rates stable on current dose of Coreg and amiodarone. Continue Eliquis 2.5 mg twice daily for anticoagulation (age, weight)
-Continue Augmentin as recently started by PCP for URI.
HPI: Stephanie is an 88 year old female with PMH of chronic HFmrEF, CM, persistent atrial fibrillation, CAD s/p CABGx3 and PTCA of ostial and mid SVG to PDA, VT, ICD, TAVR, mitral regurgitation, DM, and HLD. She presented to [facility] for evaluation of
hypotension and SOB. She initially called the cardiology office on 03/15/2024 to report that she had been feeling weak and tired. With this, she started checking her blood pressures and her blood pressure had been low, in the 80s to 90s systolic. She
was recommended to hold her Lasix, Entresto, and Coreg and call back with an update. She then called back 03/16/2024 and was still feeling short of breath. Blood pressures were improved, but given ongoing shortness of breath, she was recommended to
go to the ER for further evaluation. On arrival to the emergency room, she was felt to be in acute heart failure and was started on IV Lasix. proBNP was elevated at 5110. She also noted increased lower extremity edema. She was admitted and
cardiology consulted for evaluation. She states she is feeling better this morning, however not yet back to her baseline. Her blood pressures are improved. She denies any shortness of breath while sitting up in her chair.
Progress Note - Senior Programmer
Subjective
Date of Service: March 19, 2024
Feels well, wants to go home
Objective
Labs:
03/16/24 14:45
03/19/24 08:25
Labs
Hgb 13.0 g/dL (12.0-16.0) 03/16/24 14:45
Hct 39.5 % (37.0-47.0) 03/16/24 14:45
Plt Count 261 10^3/uL (130-400) 03/16/24 14:45
Sodium 139 mmol/L (135-145) 03/19/24 08:25
Potassium 3.9 mmol/L (3.5-5.1) 03/19/24 08:25
BUN 16 mg/dl (7-17) 03/19/24 08:25
Creatinine 0.7 mg/dL (0.6-1.0) 03/19/24 08:25
Glucose 216 mg/dl (70-99) H 03/19/24 08:25
Troponins
03/16/24
14:45
Troponin I < 0.012
Vital Signs and I&O:
Vital Signs
Temp Pulse Resp BP Pulse Ox
97.7 F 73 16 134/69 98
03/19/24 03:00 03/19/24 03:00 03/19/24 03:00 03/19/24 03:00 03/19/24 03:00
Vital Signs
Temp Pulse Resp BP Pulse Ox
97.7 F 73 16 134/69 98
03/19/24 03:00 03/19/24 03:00 03/19/24 03:00 03/19/24 03:00 03/19/24 03:00
Intake & Output
03/17/24 03/18/24 03/19/24 03/20/24
06:59 06:59 06:59 06:59
Intake Total 960 / 960 1320 / 1320 480 / 480
Output Total 300 / 300
Balance 960 / 960 1320 / 1320 480 / 480 -300 / -300
Physical Exam
Physical Exam
GEN: NAD. AAOx3
HEENT: EOMI, MMM, wearing glasses
LUNGS: CTA B/L without wheeze or rales
CV: Reg, S1/S2, 1/6 syst LSB
ABD: soft, BS+, NT, ND
EXT: +1 B/L LE edema, left worse than right. No clubbing, cyanosis or lesions B/L
NEURO: Gross non-focal
SKIN: Warm, dry and pink. No rash
--- NOTE | 2024-03-19 10:56 | PN.CDI ---
CDI
- -
CDI:
Physician Documentation Request
Admit Date: 03/16/24 18:18
Dear Doctor Deyanira,
Patient admitted with acute heart failure.
03/18 Cardiology PN: 'Persistent atrial fibrillation...Heart rates stable on current dose of Coreg and amiodarone. Continue Eliquis 2.5 mg twice daily for anticoagulation'
03/19 Hospitalist PN: 'Paroxysmal atrial fibrillation, Chronic coagulopathy with Eliquis'
If possible, please provide further specificity regarding atrial fibrillation, such as:
Persistent atrial fibrillation - episodes of continuous AF that last more than 7 days and do not self-terminate
Paroxysmal atrial fibrillation - terminates spontaneously or with intervention within 7 days of onset
Other - please specify
Use of terms such as suspected, likely, concern for, or probable (associated with a specific diagnosis that is being evaluated, monitored, or treated as if it exists) are acceptable and can be coded in the inpatient setting, when documented at the
time of discharge.
Thank you,
Tran Lester RN, BSN
CDI Specialist
Available via [place] text
Please use your independent medical judgment in providing your response.
--- NOTE | 2024-03-19 10:59 | PN.CDI ---
CDI
- -
CDI:
Physician Documentation Request
Admit Date: 03/16/24 18:18
Dear Doctor Deyanira,
Patient admitted for acute heart failure exacerbation.
03/18 Cardiology PN: 'Acute on chronic HFmrEF'
03/19 Hospitalist PN: 'Mild acute on chronic HFpEF and HFrEF'
Please provide further specificity regarding the most likely type of CHF you are evaluating, treating or monitoring:
HF mid range/ mildly reduced
HF combined systolic and diastolic
Other
Use of terms such as suspected, likely, concern for, or probable (associated with a specific diagnosis that is being evaluated, monitored, or treated as if it exists) are acceptable and can be coded in the inpatient setting, when documented at the
time of discharge.
Thank you,
Tran Lester RN, BSN
CDI Specialist
Available via [place] text
Please use your independent medical judgment in providing your response.
[2024-03-19 12:23] LABS: Glucose - Point of Care 149 mg/dl (70-99)
--- NOTE | 2024-03-19 15:08 | PTOTSP ---
Pt is independent with bed mobility, transfers, and ambulation with her cane. No acute PT needs were identified. PT will sign off.
--- NOTE | 2024-03-19 15:16 | CM ---
I met with Stephanie and her daughter to provide the 2nd IMM and review the form. Stephanie is hoping to return home tomorrow with no needs.
PCP: Dr. Izquierdo
Pharmacy: [facility]
[2024-03-19 17:28] LABS: Glucose - Point of Care 145 mg/dl (70-99)
[2024-03-19 21:55] LABS: Glucose - Point of Care 162 mg/dl (70-99)
[2024-03-20 04:40] VITALS: BP 125/73
[2024-03-20 05:48] VITALS: BMI 22.6
[2024-03-20 07:35] VITALS: BP 135/70
[2024-03-20 08:10] LABS: Glucose - Point of Care 124 mg/dl (70-99)
[2024-03-20] MEDS: NOVOLOG FLEXPEN-LOW RESISTANCE SC (08:11)
[2024-03-20] MEDS: LIPITOR 10 MG PO (08:12)
[2024-03-20] MEDS: LASIX 80 MG IV (08:12)
[2024-03-20] MEDS: VITAMIN C 500 MG PO (08:12)
[2024-03-20] MEDS: COREG 6.25 MG PO (08:12)
[2024-03-20] MEDS: PACERONE 200 MG PO (08:12)
[2024-03-20] MEDS: ELIQUIS 2.5 MG PO (08:13)
[2024-03-20] MEDS: OSCAL 500 + D 500 MG PO (08:13)
[2024-03-20] MEDS: VITAMIN B-12 1000 MCG PO (08:13)
[2024-03-20] MEDS: AUGMENTIN 875 MG/125 MG 1 TABLET PO (08:13)
[2024-03-20] MEDS: THERAGRAN 1 TABLET PO (08:13)
[2024-03-20] MEDS: JARDIANCE 10 MG PO (08:13)
[2024-03-20] MEDS: ENTRESTO 24 MG/26 MG 1 TAB PO (08:13)
--- NOTE | 2024-03-20 08:44 | W.PN.HOSP.TC ---
Addendum entered and electronically signed by Josh Mcmillan DO 03/20/24 11:02:
I spoke with cardiology team, they recommend discharge home on oral Lasix. Outpatient follow-up.
Original Note:
Today's Communication/Plan
-
Diuresis per cardiology
Assessment / Plan
Assessment / Plan
Gen-AAOx3, NAD
HEENT-NC, AT, anicteric, clear oral mm
Neck-supple
CV-reg, no M, +S1/S2
Lungs-clear B/L
Abd-soft, NT, ND
Ext-trace bilateral ankle edema
Musculoskeletal-no cyanosis, clubbing
Skin-warm and dry
Neuro-grossly non-focal
Psych-calm, cooperative
Acute on chronic heart failure with midrange EF exacerbation -improving on IV Lasix. Denies shortness of breath. Weight down to 52 kg.
BiV ICD
Severe valvular disease with MR
Aortic stenosis status post TAVR
Hypotension - likely secondary to overmedication. Suspect hypotension contributed to transient bilateral blurry vision prior to admission.
Entresto resumed.
Hyponatremia -present on admission. Resolved.
Recent URI -completed course of Augmentin.
Persistent atrial fibrillation -continue Eliquis.
DM2 with hyperglycemia -glucose 124 this morning on BMP, 162 last night. She is on Jardiance and metformin at home. Hemoglobin A1c 7.2%. Currently on Jardiance and low resistance NovoLog scale.
Hyperlipidemia -continue atorvastatin.
Breast cancer
Continue tamoxifen
Full code
PT/OT -no skilled PT needed.
Anticipated Discharge: Within 24 hours
Subjective/Interval History
-
Date of Service: March 20, 2024
Patient seen and examined. No new complaints.
Objective Data
-
Labs:
Laboratory Results
03/20/24
07:52
Sodium Pending
Potassium Pending
Chloride Pending
Carbon Dioxide Pending
BUN Pending
Creatinine Pending
Glucose Pending
Calcium Pending
Vital Signs:
Vital Signs
Temp Pulse Resp BP Pulse Ox
97.6 F 75 17 135/70 98
03/20/24 07:35 03/20/24 07:35 03/20/24 07:35 03/20/24 08:12 03/20/24 07:35
I&O
03/19/24 03/20/24 03/21/24
06:59 06:59 06:59
Intake Total 480 / 480 960 / 960
Output Total 3500 / 3500
Balance 480 / 480 -2540 / -2540
Review of Systems
-
History Source: Patient
All other systems: Reviewed and negative
[2024-03-20 09:11] LABS: Blood Urea Nitrogen 20 mg/dl (7-17); Calcium 9.5 mg/dl (8.4-10.2); Carbon Dioxide 32 mmol/L (22-30); Chloride 100 mmol/L (98-107); Estimated Creatinine Clearance 46 ml/min; Glucose 137 mg/dl (70-99); Potassium 3.7 mmol/L (3.5-5.1); Sodium 141 mmol/L (135-145); eGFR > 60.00
[2024-03-20 10:32] VITALS: BP 99/64; PULSE 71; O2SAT 97
--- NOTE | 2024-03-20 10:38 | PTOTSP ---
pt currently requires no assistance to complete simple ADLs, functional transfers, ambulation. no acute OT needs identified, will sign off.
--- NOTE | 2024-03-20 10:38 | W.PN.CARDCBS ---
Addendum entered and electronically signed by Darrel pAonte DO 03/20/24 14:47:
I saw and examined the patient.
The Manager Park's note was reviewed and I agree with the note.
Comment:
Plan:
Compensated for d/c from cardiac standpoint
Cont lasix at 120 mg in the a.m. and 80 mg in the p.m.
Continue current GDMT for cardiomyopathy including Coreg, Entresto and Jardiance.
Outpatient cardiac follow-up arranged. Discussed with daughter at bedside.
Original Note:
Today's Communication / Plan
-
Lasix 120 mg AM and 80 mg PM daily
Cont usual doses of Coreg, Entresto and Jardiance
Will arrange for cardiolgy f/u
Impression / Plan
-
PCP: Dr. Izquierdo
Lead Java J2Ee Developer: Dr. Ericka Norris
Impression:
Presented with SOB, hypotension
Acute on chronic HFmrEF
Cardiomyopathy, EF 40-45% by echo 03/19/24
Persistent atrial fibrillation
Chronic Eliquis anticoagulation
CAD
s/p CABG x3 05/26/2004
Patient SZYMANSKI to LAD and SVG to OM-1, successful complex, long and difficult PTCA of the ostial and mid SVG to PDA 04/07/22
h/o polymorphic VT 03/2022
Chronic amiodarone therapy
s/p [employer] Bi-V pacemaker upgraded to ICD with new RV ICD lead 04/09/22
s/p TAVR 09/2015
Moderate-severe MR
DM 2
HLD
Echo 09/28/2023: EF 42%, global hypokinesis with basal anteroseptal, basal inferior, and basal septal akinesis, moderate to severe MR, TAVR with peak/mean gradients 20/10 mmHg, trace AI, mild to moderate TR, estimated PAP 37 mmHg
Echo 03/19/24: EF 40-45%, global hypokinesis as well as basal anterior, basal inferior and basal septal akinesis. Stage III diastolic dysfunction suggestive of restrictive filling pattern and increased filling pressures, normal RV size and function,
mod MR, TAVR with peak/mean 14/8 mmHg and no AI
Plan:
-Weight down to 115 lbs on 03/20/24 which is below her previous dry weight of 119 lbs. Patient has improved LE edema and bloating. Echo shows improved MR as well.
-Patient will start a regimen of Lasix 120 mg AM and 80 mg PM at time of discharge. Overall this is a higher dose than previous which alternated AM dosing between 80 mg and 120 mg plus had a nightly dose of 80 mg.
-BP stable at 135/70 and patient worked with PT/OT 03/19/24 without dizziness or lightheadedness.
-Outpatient meds Coreg, Entresto and Lasix held just prior to admission when patient called the cardiology office to report blurry vision both eyes last Tuesday into . Then started with increased SOB and was admitted with acute HF Tuesday.
-Coreg 6.25 mg BID restarted 03/16/24 and all doses given with stable BP.
-Entresto 24/26 mg BID restarted 03/18/24 AM and thus far all doses given with stable BP
-Cont Jardiance 10 mg daily
-Device checked by me 03/19/24 and no atrial or ventricular arrhythmia since 01/11/24
-Creat stable at 0.6.
-Troponin undetectable x 1.
-Known atrial fibrillation. Heart rates stable on current dose of Coreg and amiodarone. Continue Eliquis 2.5 mg twice daily for anticoagulation (age, weight)
-Continue Augmentin as recently started by PCP for URI.
-Patient is stable for d/c to home and will arrange outpatient follow up
HPI: Stephanie is an 88 year old female with PMH of chronic HFmrEF, CM, persistent atrial fibrillation, CAD s/p CABGx3 and PTCA of ostial and mid SVG to PDA, VT, ICD, TAVR, mitral regurgitation, DM, and HLD. She presented to [facility] for evaluation of
hypotension and SOB. She initially called the cardiology office on 03/15/2024 to report that she had been feeling weak and tired. With this, she started checking her blood pressures and her blood pressure had been low, in the 80s to 90s systolic. She
was recommended to hold her Lasix, Entresto, and Coreg and call back with an update. She then called back 03/16/2024 and was still feeling short of breath. Blood pressures were improved, but given ongoing shortness of breath, she was recommended to
go to the ER for further evaluation. On arrival to the emergency room, she was felt to be in acute heart failure and was started on IV Lasix. proBNP was elevated at 5110. She also noted increased lower extremity edema. She was admitted and
cardiology consulted for evaluation. She states she is feeling better this morning, however not yet back to her baseline. Her blood pressures are improved. She denies any shortness of breath while sitting up in her chair.
Progress Note - Lead Java J2Ee Developer
Subjective
Date of Service: March 20, 2024
She feels well, no dizziness
Objective
Labs:
03/16/24 14:45
03/20/24 07:52
Labs
Hgb 13.0 g/dL (12.0-16.0) 03/16/24 14:45
Hct 39.5 % (37.0-47.0) 03/16/24 14:45
Plt Count 261 10^3/uL (130-400) 03/16/24 14:45
Sodium 141 mmol/L (135-145) 03/20/24 07:52
Potassium 3.7 mmol/L (3.5-5.1) 03/20/24 07:52
BUN 20 mg/dl (7-17) H 03/20/24 07:52
Creatinine 0.6 mg/dL (0.6-1.0) 03/20/24 07:52
Glucose 137 mg/dl (70-99) H 03/20/24 07:52
Vital Signs and I&O:
Vital Signs
Temp Pulse Resp BP Pulse Ox
97.6 F 75 17 135/70 98
03/20/24 07:35 03/20/24 07:35 03/20/24 07:35 03/20/24 08:12 03/20/24 07:35
Vital Signs
Temp Pulse Resp BP Pulse Ox
97.6 F 75 17 135/70 98
03/20/24 07:35 03/20/24 07:35 03/20/24 07:35 03/20/24 08:12 03/20/24 07:35
Intake & Output
03/18/24 03/19/24 03/20/24 03/21/24
06:59 06:59 06:59 06:59
Intake Total 1320 / 1320 480 / 480 960 / 960
Output Total 3500 / 3500
Balance 1320 / 1320 480 / 480 -2540 / -2540
Physical Exam
Physical Exam
GEN: NAD. AAOx3
HEENT: EOMI, MMM, wearing glasses
LUNGS: CTA B/L without wheeze or rales
CV: Reg, S1/S2, 1/6 syst LSB
ABD: soft, BS+, NT, ND
EXT: Trace B/L LE edema, left worse than right. No clubbing, cyanosis or lesions B/L
NEURO: Gross non-focal
SKIN: Warm, dry and pink. No rash
--- NOTE | 2024-03-20 10:50 | CM ---
Patient seen bedside.
Per patient she is for d/c home today, denies home PT needs.
IMM completed yesterday.
Plan: home no needs.
--- NOTE | 2024-03-20 11:06 | W.DS.TRANS ---
DC Summary - Rn Travel
-
Discharge Instructions:
Sleep Apnea Risk Intermediate
Discharge Diagnosis/Procedures Heart failure exacerbation
Diet 2 Gram Sodium
Additional Diets 48-64 oz of fluid daily
Activity As tolerated
Driving Restrictions As prior to admission
Bathing Restrictions None
Blood Work BMP next week with your primary care doctor
Specialty Instructions Weigh Daily
Instructions: *DCA Heart Failure Instructions
Stand-Alone Forms:
Changes to Home Medications: No
Discharge Medications:
DC Medications w/original date entered in [employer]
alendronate 70 mg tablet 70 mg PO SA 01/16/18
atorvastatin 10 mg tablet 10 mg PO DAILY 01/16/18
metformin 500 mg tablet 500 mg PO TID ##0 12/05/19
ascorbic acid (vitamin C) 500 mg tablet (Vitamin C) 500 mg PO DAILY 04/06/22
calcium carbonate 500 mg-vitamin D3 5 mcg (200 unit) tablet (Oyster Shell Calcium-Vitamin D3) 1 tab PO DAILY 04/06/22
cyanocobalamin (vitamin B-12) 1,000 mcg tablet 1,000 mcg PO DAILY 04/06/22
multivitamin with folic acid 400 mcg tablet (Tab-A-Óscar) 1 tab PO DAILY 04/06/22
amiodarone 200 mg tablet 200 mg PO DAILY 03/16/24
apixaban 2.5 mg tablet 2.5 mg PO BID 03/16/24
carvedilol 6.25 mg tablet 6.25 mg PO BID 03/16/24
empagliflozin 10 mg tablet (Jardiance) 10 mg PO DAILY 03/16/24
guaifenesin 600 mg tablet, extended release 12 hr (Mucinex) 600 mg PO Q12H PRN congestion 03/16/24
sacubitril 24 mg-valsartan 26 mg tablet (Entresto) 1 tab PO BID 03/16/24
furosemide 80 mg tablet (Lasix) 80 mg PO DAILY@1600 Heart Failure #30 tabs 03/20/24
furosemide 80 mg tablet (Lasix) 120 mg (1.5 x 80 mg) PO DAILY Heart Failure #30 tabs 03/20/24
sacubitril 24 mg-valsartan 26 mg tablet (Entresto) 1 tab PO BID #60 tabs 03/20/24
Home Medication Changes
Pending Results: No
[2024-03-20 11:29] VITALS: BP 110/59
== END 2024-03-20 12:28 | disposition home or self-care (01) | DRG 292 ==
LOC: 4 WEST ACU 18:18
PROVIDERS: Physician Assistant; ADMITTING PHYSICIAN Hospitalist; ATTENDING PHYSICIAN Hospitalist; CONSULT PHYSICIAN Internal Medicine Cardiovascular Disease; EMERGENCY PHYSICIAN Emergency Medicine; FAMILY PHYSICIAN Family Medicine
DX: I50.23 Acute on chronic systolic (congestive) heart failure (principal); D68.9 Coagulation defect, unspecified; E87.1 Hypo-osmolality and hyponatremia; I48.19 Other persistent atrial fibrillation; I95.9 Hypotension, unspecified; E11.9 Type 2 diabetes mellitus without complications; C50.919 Malignant neoplasm of unspecified site of unspecified female breast; I25.10 Atherosclerotic heart disease of native coronary artery without angina pectoris; Z95.2 Presence of prosthetic heart valve; Z95.5 Presence of coronary angioplasty implant and graft; Z95.1 Presence of aortocoronary bypass graft
CPT/HCPCS: 71046; 80048; 80053; 82962; 83036; 83735; 83880; 84484; 85025; 93005; 93306; 96374; 97162; 97165; 99285